=== PATIENT | female | born 2005 | race Hispanic/Latino ===

== ENCOUNTER 2024-10-16 05:54 | Inpatient (IN) | payer OTHER ==
[2024-10-13 10:57] LABS: Hematocrit 32.0 % (34.9-44.5); Hemoglobin 10.5 g/dL (12.0-15.5); Platelet Count 408 10x3/uL (150-450)
[2024-10-13 11:37] LABS: Syphilis Antibody Index 0.10 S/CO (<1.00 Non-Reactive)
[2024-10-13 11:39] LABS: Hep B Surf Ag Non-Reactive S/CO (NonReactive)
[2024-10-16] MEDS ORDERED: hydrALAZINE 20 MG/ML VIAL SLOW IVP PRN ×2 (06:14→10:02)
[2024-10-16] MEDS ORDERED: Methylergonovine 0.2 MG/ML VIAL IM PRN (06:14)
[2024-10-16] MEDS ORDERED: Tranexamic Acid 1,000 MG/10 ML VIAL IVP PRN (06:14)
[2024-10-16] MEDS ORDERED: Ondansetron PF 4 MG/2 ML Vial IVP PRN ×4 (06:14→10:02)
[2024-10-16] MEDS ORDERED: Oxytocin 30 units/NS 500 ML 500 ML IV SCH (06:14)
[2024-10-16] MEDS ORDERED: Bicitra 30 ML UDCUP PO PRN (06:14)
[2024-10-16] MEDS ORDERED: Carboprost 250 MCG/ML AMP IM PRN (06:14)
[2024-10-16] MEDS ORDERED: Diphenoxylate HCl/Atropine Tablet PO PRN ×2 (06:14→21:00)
[2024-10-16 06:32] VITALS: BMI 40.7
[2024-10-16] MEDS: Famotidine/PF 20 mg/2ml Vial SLOW IVP PRN (07:10)
[2024-10-16] MEDS ORDERED: Meperidine HCl/PF 25 MG (1 mL) VIAL SLOW IVP PRN (08:52)
[2024-10-16] MEDS ORDERED: diphenhydrAMINE 50 MG/ML VIAL IVP PRN (08:52)
[2024-10-16] MEDS ORDERED: Ketorolac Tromethamine 30 MG (1 mL) VIAL IVP SCH ×2 (09:00)
[2024-10-16] MEDS ORDERED: diphenhydrAMINE 25 MG CAP PO PRN (10:02)
[2024-10-16] MEDS ORDERED: Bisacodyl 10 MG SUPP PR PRN (10:02)
[2024-10-16] MEDS ORDERED: Lanolin Ointment 7 GM TUBE TOP PRN (10:02)
[2024-10-16] MEDS ORDERED: Simethicone Chewable 80 MG TAB PO PRN (10:02)
[2024-10-16] MEDS: Hepatitis B Vaccine 10 MCG/0.5 ML SYR ONE (10:06)
[2024-10-16] MEDS: Erythromycin Base 0.5% Oint 1 GM TUBE ONE (10:06)
[2024-10-16] MEDS: Oxytocin 10 UNITS/ML VIAL ONE ×2 (10:06→10:07)
[2024-10-16] MEDS: Dexamethasone 10 MG/ML VIAL ONE (10:07)
[2024-10-16] MEDS: Tranexamic Acid 1,000 MG/10 ML VIAL ONE (10:07)
[2024-10-16] MEDS: PHENYLEPHRINE-NS 100 MCG/ML 10 ML SYRINGE ONE ×3 (10:07)
[2024-10-16] MEDS: Ketorolac Tromethamine 30 MG (1 mL) VIAL ONE (10:07)
[2024-10-16] MEDS: Ondansetron PF 4 MG/2 ML Vial ONE (10:07)
[2024-10-16] MEDS: Boostrix 0.5 ML (Tdap) VIAL (>/=7 yrs of age) IM ONE (11:53)
[2024-10-16] MEDS: Ferrous Sulfate 325 MG TAB PO SCH (11:53)
[2024-10-16] MEDS: Ketorolac Tromethamine 30 MG (1 mL) VIAL IVP SCH (14:21)
[2024-10-16] MEDS ORDERED: Meperidine HCl/PF 25 MG (1 mL) VIAL IM PRN (21:00)
[2024-10-17 05:16] LABS: Hematocrit 27.4 % (34.9-44.5); Hemoglobin 8.6 g/dL (12.0-15.5); Mean Corpuscular Hemoglobin 26.5 pg (27.0-33.0); Mean Corpuscular Volume 84.3 fL (81.6-98.3); Platelet Count 347 10x3/uL (150-450); Red Blood Cell (RBC) Count 3.25 10x6/uL (3.90-5.03); White Blood Cell (WBC) Count 15.64 10x3/uL (3.5-10.5)
[2024-10-17] MEDS: Ferrous Sulfate 325 MG TAB PO SCH (05:41)
[2024-10-17] MEDS: Ibuprofen 800 MG TAB PO SCH (13:55)
[2024-10-17] MEDS: HYDROcodone/Acetaminophen 5/325 mg Tablet PO PRN (17:56)
[2024-10-18] MEDS: HYDROcodone/Acetaminophen 5/325 mg Tablet PO PRN (12:15)
[2024-10-19 20:02] VITALS: BP 123/71; TEMP 97.5
== END 2024-10-19 20:00 | disposition home or self-care (01) | DRG 788 ==
LOC: CSHLD 05:54 → CSHPP 10:00
PROVIDERS: ADMIT Family Medicine; ATTEND Family Medicine
PROC: 10D00Z1 Extraction of Products of Conception, Low, Open Approach (ICD-10-PCS; principal; 2024-10-16)
PROC: 4A1HXCZ Monitoring of Products of Conception, Cardiac Rate, External Approach (ICD-10-PCS; 2024-10-16)
DX: O34.211 Maternal care for low transverse scar from previous cesarean delivery (principal); O99.214 Obesity complicating childbirth; Z79.899 Other long term (current) drug therapy; Z79.82 Long term (current) use of aspirin; Z3A.39 39 weeks gestation of pregnancy; Z37.0 Single live birth
CPT/HCPCS: 36415; 51702; 85014; 85018; 85027; 85049; 86780; 86850; 86900; 86901; 87340; C1889; J1100; J1308; J1885; J2274; J2405; J2550; J2590; J3010; J7120